=== PATIENT | male | born 1995 | race Caucasian/White ===

== ENCOUNTER 2019-05-18 12:54 | Emergency (ER) | payer BC ==
--- NOTE | 2019-05-18 13:31 | ED Physician Documentation ---
PD HPI ABD PAIN - Stated complaint Stated Complaint: LOW ABD PX - Chief complaint Chief Complaint: Abd Pain - History obtained from History obtained from: Patient - History of Present Illness Timing - onset: Other (Healthy 23-year-old gentleman, monogamous presents with a week's worth of waxing and waning right greater than left testicular pain that radiates into the pelvis and low back. She denies urinary complaints. No trouble with bowel movements and the pain is alleviated by bowel movements. No discharge. He has no concern for STDs. Pain is better when supine and worse with when upright, pain is also better when his testicles are close to his body. He does get some relief with ibuprofen.) Review of Systems Constitutional: denies: Fever, Chills GI: denies: Abdominal Pain, Nausea, Vomiting : denies: Dysuria, Frequency, Hesitancy, Unable to Void, Incontinent, Hematuria, Discharge PD PAST MEDICAL HISTORY - Present Medications Home Medications: Ambulatory Orders Medication Instructions Recorded Confirmed Doxycycline Hyclate 100 mg PO BID #20 capsule 05/18/19 - Allergies Allergies/Adverse Reactions: Allergies Allergy/AdvReac Type Severity Reaction Status Date / Time No Known Drug Allergies Allergy Verified 05/18/19 13:09 PD ED PE NORMAL - Vitals Vital signs reviewed: Yes - General General: Alert and oriented X 3, No acute distress - Abdomen Abdomen: Soft, Non tender - Male Male : Other (Normal testicular lie with bilateral cremaster reflexes. Fullness of the right greater than left epididymis with tenderness. No prostatic tenderness on rectal examination.) - Back Back: No CVA TTP, No spinal TTP - Derm Derm: Normal color, Warm and dry - Neuro Neuro: Alert and oriented X 3, Normal speech Results - Vitals Vitals: Vital Signs - 24 hr 05/18/19 13:06 Temperature 36.6 C Heart Rate 84 Respiratory 16 Rate Blood Pressure 118/74 O2 Saturation 97 Oxygen O2 Source Room air - Labs Labs: Laboratory Tests 05/18/19 05/18/19 05/18/19 13:34 13:34 14:35 WBC 7.0 RBC 5.89 Hgb 17.0 Hct 49.5 MCV 84.0 MCH 28.9 MCHC 34.3 RDW 12.6 Plt Count 265 MPV 9.3 Neut # (Auto) 4.3 Lymph # (Auto) 1.9 [place] # (Auto) 0.5 Eos # (Auto) 0.3 Baso # (Auto) 0.1 Absolute Nucleated RBC 0.00 Nucleated RBC % 0.0 Sodium 136 Potassium 3.7 Chloride 100 L Carbon Dioxide 25 Anion Gap 11.0 BUN 15 Creatinine 1.0 Estimated GFR (MDRD) 93 Glucose 90 Calcium 9.5 Total Bilirubin 1.1 H AST 25 ALT 26 Alkaline Phosphatase 71 Total Protein 8.0 Albumin 5.0 Globulin 3.0 Albumin/Globulin Ratio 1.7 Lipase 32 Urine Color YELLOW Urine Clarity CLEAR Urine pH 6.0 Ur Specific [place] <=1.005 Urine Protein NEGATIVE Urine Glucose (UA) NEGATIVE Urine Ketones NEGATIVE Urine Occult Blood NEGATIVE Urine Nitrite NEGATIVE Urine Bilirubin NEGATIVE Urine Urobilinogen 0.2 (NORMAL) Ur Leukocyte Esterase NEGATIVE Ur Microscopic Review NOT INDICATED Urine Culture Comments NOT INDICATED - Rads (name of study) SONO Scrotum Radiology: Final report received (normal) PD MEDICAL DECISION MAKING - ED course ED course: 23-year-old gentleman with history and physical most consistent with epididymi tis. No pertinent positive findings on testicular ultrasound or labs. Negative rectal exam for prostatitis. Will treat with IM Rocephin and doxycycline. Departure - Departure Disposition: 01 Home, Self Care Clinical Impression: Acute epididymitis Condition: Good Record reviewed to determine appropriate education?: Yes Health Concerns: testicular/pelvic pain Plan of Treatment: cetriaxone IM, PO doxy Care Goals: pain /symptom resolution Assessment: as above Instructions: Epididymitis Dc Prescriptions: Doxycycline Hyclate 100 mg PO BID #20 capsule Comments: Call your doctor to arrange a follow-up appointment, make the next available appointment. In the interim, return anytime if worse or if new symptoms develop.
[2019-05-18 13:42] LABS: BASOPHILS # (AUTO) 0.1 10^3/uL (0.0-0.1); BASOPHILS % (AUTO) 1.3 %; EOSINOPHILS # (AUTO) 0.3 10^3/uL (0.0-0.7); EOSINOPHILS % (AUTO) 3.6 %; LYMPHOCYTES # (AUTO) 1.9 10^3/uL (1.5-3.5); LYMPHOCYTES % (AUTO) 27.1 %; MEAN CORPUSCULAR HEMOGLOBIN 28.9 pg (27.0-31.0); MEAN CORPUSCULAR HGB CONC 34.3 g/dL (32.0-36.0); MEAN PLATELET VOLUME 9.3 fL (7.4-11.4); MONOCYTES # (AUTO) 0.5 10^3/uL (0.0-1.0); NEUTROPHILS # (AUTO) 4.3 10^3/uL (1.5-6.6); NEUTROPHILS % (AUTO) 60.7 %; PLT - PLATELET COUNT 265 10^3/uL (130-450); RED BLOOD COUNT 5.89 10^6/uL (4.70-6.10); RED CELL DISTRIBUTION WIDTH 12.6 % (12.0-15.0)
[2019-05-18 14:07] LABS: ALBUMIN/GLOBULIN RATIO 1.7 (1.0-2.2); BILIRUBIN,TOTAL 1.1 mg/dL (0.2-1.0); CALCIUM 9.5 mg/dL (8.5-10.3)
[2019-05-18 14:47] LABS: BILIRUBIN,URINE NEGATIVE (NEGATIVE); GLUCOSE, URINE (UA) NEGATIVE (NEGATIVE); KETONES,URINE (UA) NEGATIVE (NEGATIVE); LEUKOCYTE ESTERASE, URINE NEGATIVE (NEGATIVE); NITRITE,URINE NEGATIVE (NEGATIVE); OCCULT BLOOD,URINE NEGATIVE (NEGATIVE); PROTEIN,URINE NEGATIVE (NEGATIVE); UROBILINOGEN,URINE 0.2 (NORMAL) E.U./dL (NORMAL)
[2019-05-18 14:50] LABS: CLARITY,URINE CLEAR (CLEAR)
--- NOTE | 2019-05-18 15:57 | Ultrasound Report ---
Reason: R>L testicular pain, most c/w epidydimitis Procedure Date: 05/18/2019 Accession Number: [id number] / [id number] Procedure: US - Testicle w/Doppler CPT Code: FULL RESULT: EXAM: SCROTAL ULTRASOUND EXAM DATE: 05/18/2019 03:39 PM. CLINICAL HISTORY: Right greater than left testicular pain, most consistent with epididymitis. COMPARISON: None. TECHNIQUE: Real-time scanning was performed with static images obtained. Color-flow images were utilized. FINDINGS: Right: Testis: 5.0 x 2.4 x 3.1 cm. Normal size and echotexture. No mass, calcification, or abnormal blood flow. Epididymis: Epididymal head measures 0.8 x 0.8 cm. Normal size and echotexture. No mass or abnormal blood flow. Note is made of an epididymal head cyst. Hydrocele: Trace, likely within physiologic limits. Varicocele: None. Left: Testis: 5.2 x 2.4 x 3.3 cm. Normal size and echotexture. No mass, calcification, or abnormal blood flow. Epididymis: Epididymal head measures 0.9 x 0.7 cm. Normal size and echotexture. No mass or abnormal blood flow. Hydrocele: Trace, likely within physiologic limits. Varicocele: None. IMPRESSION: No evidence of testicular torsion or abscess formation. [facility]
[2019-05-18] MEDS ORDERED: cefTRIAXone 250 MG VIAL IM STA (16:12)
[2019-05-18] MEDS ORDERED: LIDOCAINE 1% 2 ML VIAL MC ONE (16:12)
[2019-05-18 16:30] VITALS: BP 120/80
[2019-05-18 22:10] LABS: TRICHOMONAS VAGINALIS DNA NEGATIVE (NEGATIVE)
== END 2019-05-18 16:31 | disposition home or self-care (01) ==
LOC: ED 12:54
DX: N45.1 Epididymitis (principal)
CPT/HCPCS: 36415; 76870; 80053; 81001; 81003; 83690; 85025; 87086; 87491; 87591; 87661; 93975; 96372; 99283; 99284